=== PATIENT | female | born 1945 | race Caucasian/White ===

== ENCOUNTER 2017-06-22 16:34 | Inpatient (IN) | payer OTHER ==
[2017-06-22] VITALS (17 sets, daily range): BP systolic 85–116; BP diastolic 40–70
[~2017-06-22] VITALS: Ht 162.6 cm; Wt 112.5 kg
--- NOTE | ~2017-06-22 | EKG ---
[facility] [place] [address] ELECTROCARDIOGRAM REPORT Name: MARISADONNAKAMI Room #: REG CONNIE Camargo#: [id number] Admission: 06/22/17 Attend Phys: Discharge: Date of : 41 Report #: [id number] THIS REPORT FOR: //name// [facility] ED Test Date: 2017-06-22 Test Time: 16:54:06 Pat Name: KAMI OCHOA Department: Room: Gender: F Instrument Operator: MIGUEL : 1945 Requested By: Marjorie Baltazar Order Number: [id number] MD: Michele Belle Measurements Intervals [place] Rate: 85 P: -37 MI: 221 QRS: -25 QRSD: 84 T: 136 QT: 394 QTc: 469 Interpretive Statements Sinus rhythm Prolonged MI interval Inferior infarct, old Anterolateral infarct, age indeterminate T-wave abnormality, consider lateral ischemia No previous ECG available for comparison Electronically Signed On 06-22-2017 17:33:21 LACTATION SPECIALIST by Michele Belle [email or web address] <ELECTRONICALLY SIGNED> By: Michele Belle MD, [facility] 06/22/17 1733 1654 1654 Michele Belle MD, FACC /EPI
--- NOTE | ~2017-06-22 | S ---
[facility] [place] [address] SURGICAL PATH RPT PROCEDURE Name: KERRI OCHOAA Room #: 355-P ADM IN M.R.#: [id number] Admission: 06/22/17 Date of : 41 Discharge: Report #: [id number] Path Case #: [id number] PATHOLOGY REPORT COLLECTION DATE: 06/27/2017 RECEIVED DATE: 06/27/2017 SUBMITTING PHYS: Dr. Wyatt Monroy OTHER PHYS: Dr. Charmaine Garcia SPECIMEN(S) RECEIVED: A.Cecal polyp B.Sigmoid polyp x2 * * * * * * * * * * * * FINAL DIAGNOSIS: A. "Cecal polyp", biopsy: - Tubular adenoma; no high grade dysplasia. B. "Sigmoid polyp x 2", biopsy: - Tubular adenoma; no high grade dysplasia. (CLW:db; 06/28/2017) PATHOLOGIST: Nicole Melendez M.D. REPORT ELECTRONICALLY SIGNED BY: Nicole Melendez M.D. DATE/TIME: 06/28/2017 15:49 * * * * * * * * * * * * GROSS PATHOLOGY: A. Received in formalin labeled "Kami Ochoa, polyp at cecum," is a 1.1 x 0.4 x 0.4 cm polypoid piece of maciel soft tissue. The margin is inked and the tissue is sectioned perpendicular to the margin and submitted in its entirety in cassette A1. B. Received in formalin labeled "Kami Ochoa, polyp at sigmoid colon," is a 0.8 x 0.5 x 0.7 cm polypoid piece of maciel soft tissue. The margin is inked and the tissue is sectioned perpendicular to the margin and submitted in its entirety in cassette B1. Additionally received in the same container is a 0.7 x 0.6 x 0.6 cm polypoid piece of maciel soft tissue. The margin is inked and the tissue sectioned perpendicular to the margin and submitted entirely in cassette B1. (TSD; 06/27/2017) CLINICAL HISTORY: Pre-OP DX: Melena, anemia Post-OP DX: Colon polyps, diverticulosis, internal hemorrhoids [address] [place] [address] SURGICAL PATH RPT PROCEDURE Name: KAMI OCHOA Room #: 355-P ADM IN M.R.#: [id number] Admission: 06/22/17 Date of : 41 Discharge: Report #: [id number] Path Case #: [id number] INITIAL CPT CODE(S): A; 81101 B; 99828 Professional services performed by [facility] at [facility] [address] [place] [address] Technical services performed by [facility] at [address] [place] [address], [facility] [address], [place] [address]. [facility] [address] [address] PHONE: [phone] DIRECTOR: Anant Osorio M.D. * * * END OF REPORT * * *
--- NOTE | ~2017-06-22 | HC ---
[facility] [place] [address] CONSULTATION Name: KAMI OCHOA Room #: 238-P ADM IN M.R.#: [id number] Admission: 06/22/17 Attend Phys: Charmaine Munoz Discharge: Date of : 41 Report #: [id number] THIS REPORT FOR: //name// CC: Charmaine Garcia DATE OF SERVICE: 06/22/[address] Vanessa Garcia and Dr. Charmaine Munoz. CHIEF COMPLAINT: This is a very pleasant 72-year-old white female whom I am asked to evaluate for possible etiologies of melena. The patient has had flu-like symptoms beginning last Tuesday, about 5 days ago. The flu symptoms included headache, dizziness, shortness of breath, dyspnea on exertion and initially, she had nausea and vomiting as well. She did not vomit any type of bloody material. She started passing black colored stools and became very weak, particularly today. She has been unable to eat anything for the last 5 or 6 days, she has had a lot of malaise and has probably become quite dehydrated because she has not even been drinking any water or any type of liquid. PAST MEDICAL HISTORY: Significant only for hyperlipidemia. She has been quite healthy all of her life. PAST SURGICAL HISTORY: Significant for bilateral tubal ligation in 1971 and she had ovarian cyst removed in 1963. ALLERGIES: No known drug allergies. MEDICATIONS: Prior to admission include only atorvastatin and aspirin. SOCIAL HISTORY: She does not smoke. She drinks a rare occasional beer, but nothing on a daily basis or excessively. She has never had a blood transfusion. FAMILY HISTORY: Negative for colon polyps, colon cancer, Crohn's disease and ulcerative colitis. REVIEW OF SYSTEMS: She denies any dysphagia or odynophagia. She does have worsening gastroesophageal reflux symptoms during all of this. She has no history of a hiatal hernia or peptic ulcer disease. Her weight has been stable. Her appetite was very good prior to this influenza, and she has had no appetite for the last 5 days and has eaten hardly anything. She has not even been drinking fluids. She has had some nausea and vomiting and had some emesis that [facility] [address] [place] [address] CONSULTATION Name: KAMI OCHOA Room #: 238-P [facility] IN .R.#: [id number] Admission: 06/22/17 Attend Phys: Charmaine Munoz Discharge: Date of : 41 Report #: [id number] was nonbloody Tuesday night. Then, she developed some black stools starting Tuesday and her hemoglobin at the time when she came to the ER was 8.8 prior to volume resuscitation. She was lightheaded. She did not have any syncopal episodes. She denied any abdominal pain. She has had no constipation. She said her last colonoscopy was within the last 10 years and it was normal. She has no history of jaundice, hepatitis, cholelithiasis, cholecystitis or pancreatitis. PHYSICAL EXAMINATION: GENERAL: Reveals a well-developed, well-nourished 72-year-old white female who is in mild distress because of her malaise. She is awake, alert, oriented x 4 and cooperative and pleasant to converse with. HEENT: She is normocephalic, atraumatic and anicteric. HEART: Rate and rhythm are regular with a normal S1 and S2. VITAL SIGNS: Blood pressure is stable after 3 liters of normal saline in the ER. LUNGS: Clear to auscultation bilaterally. ABDOMEN: Soft, nontender. Bowel sounds are present in all 4 quadrants. There is no palpable organomegaly or mass. There is no tenderness, rebound or guarding. EXTREMITIES: Warm and dry. No peripheral cyanosis, clubbing or edema. NEUROLOGIC: She appears grossly intact without lateralizing signs. SIGNIFICANT LABORATORY DATA: Sodium 133, potassium 3.4, chloride 98, CO2 of 25, BUN 44, creatinine is 1.1, glucose 311, so she may be diabetic. Her liver enzymes are all within normal limits. Albumin is 2.2 consistent with her poor intake over the last week. She had a lactic acid level of 4.4. Troponin was 0.17. White blood cell count 14.5, hemoglobin 8.8, hematocrit 26.3, platelets are 249,000. Urinalysis just showed a trace of glucose and is otherwise normal. Chest x-ray showed mild cardiac enlargement, but no evidence of CHF or acute pulmonary process. CT scan of the abdomen and pelvis was done and showed the stomach to be markedly distended with fluid and some gas. There was mild circumferential mural thickening of the stomach distally. The descending duodenal segment was also thickened and there was mild mesenteric fat stranding along the side of this thick walled descending duodenum. These findings were consistent with duodenitis and distal gastritis. There was no small-bowel obstruction. Liver, spleen, pancreas, adrenals, and kidneys were unremarkable except for a 1.5 cm low density left adrenal nodule, most suggestive of an incidental adrenal cortical adenoma per the radiology report, there is some sigmoid diverticulosis, but no diverticulitis. She has uterine fibroid. There is extensive coronary artery calcification. IMPRESSION: [facility] [address] [place] [address] CONSULTATION Name: KAMI OCHOA Room #: 238-P [facility] IN [facility].#: [id number] Admission: 06/22/17 Attend Phys: Charmaine Moses Tammy Discharge: Date of : 41 Report #: [id number] 1. Recent influenza with malaise, headache, dizziness, cough, shortness of air, followed by nausea, vomiting, and melena. She has been taking some ibuprofen. It may be that she has developed some gastritis or an ulcer. CT suggests thickening of the distal stomach and descending duodenal bullock with a possible gastric outlet obstruction, suspected duodenitis and distal gastritis were noted. The patient has noted some increased gastroesophageal reflux symptoms recently, hemoglobin was 8.8. She is very dehydrated on admission and received 2 liters of fluid, so her hemoglobin will probably drop because of dilution. She does not appear to have had any further stools since earlier this afternoon, probably about at least 6 hours ago. We will monitor her H and H closely. She is typed and screened in case we need to transfuse her. We will continue proton pump inhibitor drip and monitor H and H q. 6 hours, give her some ice chips and clear liquids until midnight tonight. We will plan on doing an EGD in the morning. 2. Past medical history significant for good health and only hyperlipidemia for which she takes atorvastatin. 3. The patient had a normal colonoscopy in the past 10 years. 4. Adrenal adenoma seen on CT scan on the left adrenal. 5. Extensive coronary artery calcification. I note that her troponin level is elevated somewhat and I wonder if perhaps with her shortness of air, she might need to have a cardiac evaluation at some point. 6. Normocytic normochromic anemia with hemoglobin of 8.8. 7. Elevated white count 14.5. 8. Lactic acid level is 4.4. RECOMMENDATIONS: Continue hydrating her and will plan on an EGD in the morning. I have discussed this with the patient and the family and they are in agreement. Thank you very much once again for allowing me to participate in her care, Dr. Munoz and Dr. Garcia. <ELECTRONICALLY SIGNED> By: Queenie Cleary DO 06/23/17 0657 2055 0323 Queenie Cleary DO /nt
--- NOTE | ~2017-06-22 | P ---
[facility] [place] [address] PROCEDURE REPORT Name: KAMI OCHOA Room #: 355-P [facility] IN M.R.#: [id number] Admission: 06/22/17 Attend Phys: Charmaine Munoz Discharge: 06/29/17 Date of : 41 Report #: [id number] THIS REPORT FOR: //name// CC: Inpatient Chart Charmaine Garcia MD DATE OF SERVICE: 06/23/2017 PATIENT OF: Dr. Teo Santacruz and Dr. Vanessa Garcia. INDICATION FOR PROCEDURE: Melena and severe anemia. DESCRIPTION OF PROCEDURE: Informed consent for this procedure was obtained prior to the administration of any medication. The risks of the procedure which include bleeding, perforation, infection, complications of sedation and the possibility I could miss something have been explained to the patient and she has indicated her consent by signing. Propofol was slowly titrated before and during this procedure for patient comfort by the Anesthesia Service. The [employer] upper videoscope was introduced through the upper esophageal sphincter and advanced under direct visualization to the descending duodenum. Findings were noted on withdrawal of the scope. The third portion of the duodenum appeared normal. In the second portion, there is severe nonbleeding circumferential ulcerations for several centimeters. To meet these appeared to be ischemic ulcers. Biopsies were taken x 2 from the ischemic appearing ulcerated area. Distal to the ulcerations, the mucosa becomes abruptly normal. The duodenal bulb itself is normal in appearance. Pylorus, normal mucosa. Antrum, there are small erosions and ulcers in the antrum, nonbleeding. Biopsies were taken x 2 from these ulcerated areas for histopathology. Body, normal mucosa. Cardia and fundus, normal mucosa. Retroflex view did not reveal any significant hiatal hernia. Scope was withdrawn to the esophagus. There is a severely ulcerated esophagus from 30-40 cm. Etiology is uncertain. These will need to be revisualized in approximately 3 months to be certain that they have healed and to be certain that there is no John's ectopic mucosa or esophageal cancer present. The scope was withdrawn. The patient went to the recovery area in stable condition. She tolerated the procedure well. IMPRESSION: 1. Severely ulcerated distal esophagus from 30-40 cm, etiology uncertain, rule out John's, rule out malignancy. 2. Minor ulcerations in the distal stomach. Biopsies pending. 3. Severely ulcerated nonbleeding circumferential area in the second portion of [address] [address] PROCEDURE REPORT Name: KAMI OCHOA Room #: 355-P [facility] IN M.R.#: [id number] Admission: 06/22/17 Attend Phys: Charmaine Munoz Discharge: 06/29/17 Date of : 41 Report #: [id number] the duodenum that appears ischemic. Biopsies taken and are pending. RECOMMENDATIONS: To await the biopsy results. We will start her on a clear liquid diet. We will continue the proton pump inhibitors. She ought to have a CT angiogram of the mesenteric arteries and may need an interventional radiology consultation. We will monitor H and H closely and transfuse as necessary. Consider Cardiology consult for evaluation of the calcified coronary artery seen on CT scan. She will need a followup EGD for evaluation of the ulcerated esophagus in approximately 12 weeks. Thank you very much once again for allowing me to participate in her care. <ELECTRONICALLY SIGNED> By: Queenie Cleary DO 07/13/17 2214 0917 1033 Queenie Cleary DO /nt
--- NOTE | ~2017-06-22 | S ---
[facility] [place] [address] SURGICAL PATH RPT PROCEDURE Name: KAMI CONNOLLY Room #: 355-P ADM IN M.R.#: [id number] Admission: 06/22/17 Date of : 41 Discharge: Report #: [id number] Path Case #: [id number] PATHOLOGY REPORT COLLECTION DATE: 06/23/2017 RECEIVED DATE: 06/23/2017 SUBMITTING PHYS: Dr. Queenie Cleary OTHER PHYS: Dr. Julio Munoz ADDENDUM REPORT (Order Date: 06/27/2017 09:57) ADDENDUM COMMENT: This addendum is issued subsequent to reviewing a well-controlled Helicobacter pylori immunohistochemical stain performed on block C1. It is negative for Helicobacter pylori organisms. The originally rendered diagnosis remains unchanged. (IUV:watson; 06/27/2017) Professional services performed under supervision of [facility] at [address] [place] [address]. Technical services performed by [facility] under supervision of a [facility] at [address] [place] [address], [address] [address]. ELECTRONICALLY SIGNED BY: Molly Larkin M.D. DATE/TIME:06/27/2017 15:04 SPECIMEN(S) RECEIVED: A.Bx of duodenum B.Bx of ulcerative mucosa 2nd portion of duodenum R/O Ischemia C.Bx of ulcerative mucosa distal stomach R/O Ischemia * * * * * * * * * * * * FINAL DIAGNOSIS: A. Small bowel mucosa, duodenum, endoscopic biopsy: - Mild active duodenitis with surface epithelium showing fundic-type metaplasia (please see comment). - Negative for dysplasia or malignancy. B. Small bowel mucosa, ulcerative mucosa second portion of duodenum, endoscopic biopsy: - Marked lamina propria fibrosis along with focal fundic-type metaplasia of the surface epithelium as well as active duodenitis (please see comment). - Negative for dysplasia or malignancy. C. Gastric fundic-type mucosa, ulcerative mucosa distal stomach rule out ischemia, endoscopic biopsy: - One fragment consistent with ulceration showing complete loss of [facility] [address] [place] [address] SURGICAL PATH RPT PROCEDURE Name: KAMI CONNOLLY Room #: 355-P [facility] IN M.R.#: [id number] Admission: 06/22/17 Date of : 41 Discharge: Report #: [id number] Path Case #: [id number] surface epithelium. - Background fundic-type mucosa showing changes compatible with mild reactive gastropathy. (Please see comment). - Negative for intestinal metaplasia or atrophy. COMMENT: The presence of fundic-type metaplasia along with the other surface epithelial changes identified within the duodenum as well as the second portion of duodenum biopsy tissues is suggestive of peptic duodenitis. Although lamina propria fibrosis is identified, regenerative surface epithelium, regenerative surface atypia, fibrin filled vessels as well as other findings to suggest ischemia are not present. Ischemic changes, as well as medication induced changes are, however, in the differential diagnosis. The stomach biopsy tissue shows a fragment of fibrinopurulent material along with the other fragments intact with fundic-type mucosa as well as mild chronic inflammation within the lamina propria. Changes to suggest ischemia are not identified. The differential diagnosis includes chemical gastritis including medication induced gastritis. Helicobacter pylori immunohistochemical stain is ordered on block C1 and the results of this will be reported in an addendum to follow. Please correlate clinically and follow-up as indicated. (IUV:db; 06/24/2017) PATHOLOGIST: Molly Larkin M.D. REPORT ELECTRONICALLY SIGNED BY: Molly Larkin M.D. DATE/TIME: 06/24/2017 13:15 * * * * * * * * * * * * GROSS PATHOLOGY: A. Received in formalin labeled "Kami Connolly, BX of duodenum," are 3 segments of maciel soft tissue measuring 1.1 x 0.5 x 0.3 cm in aggregate dimensions and ranging from 0.3 to 0.4 cm in maximum dimension. The specimen is submitted entirely in cassette A1. B. Received in formalin labeled "Kami Connolly, BX of ulcerative mucosa second portion of duodenum," are 2 segments of maciel soft tissue measuring 0.6 x 0.2 x 0.3 cm in aggregate dimensions and measuring 0.3 cm in maximum dimension. The specimen is submitted entirely in cassette B1. C. Received in formalin labeled "Kami Connolly, BX of ulcerative mucosa of distal stomach," are 2 segments of maciel soft tissue measuring 0.7 x 0.2 x 0.2 cm in aggregate dimensions and ranging from 0.3 to 0.4 cm in maximum dimension. The specimen is submitted entirely in cassette C1. (TSD; 06/23/2017) [address] [address] SURGICAL PATH RPT PROCEDURE Name: KAMI CONNOLLY Room #: 355-P ADM IN M.R.#: [id number] Admission: 06/22/17 Date of : 41 Discharge: Report #: [id number] Path Case #: [id number] CLINICAL HISTORY: Pre-OP DX: Anemia Post-OP DX: Duodenal ulcers INITIAL CPT CODE(S): A; 70747 B; 19111 C; 70570, 71778 Professional services performed by [facility] at [place] [address] [address], [place] [address] Technical services performed by [facility] at [address] [place] [address], [facility] [address] [address]. [facility] [address] [place] [address] PHONE: [phone] DIRECTOR: Anant Osorio M.D. * * * END OF REPORT * * *
[2017-06-22 17:16] LABS: ABSOLUTE NEUTROPHILS 12.7 thou/uL (1.4-8.2); BASOPHILS 0.3 % (0.0-2.0); HEMATOCRIT 26.3 % (37.0-47.0); HEMOGLOBIN 8.8 gm/dL (12.0-15.0); LYMPHOCYTES 6.8 % (24.0-44.0); MCH 27.8 pg (26.0-34.0); MCHC 33.5 g/dL (28.0-37.0); MCV 83.1 fL (80.0-100.0); MONOCYTES 5.7 % (1.0-8.0); PLATELET COUNT 249 thou/uL (150-400); POLYS 87.2 % (36.0-66.0); RBC 3.17 mil/uL (4.20-5.00); RDW 14.3 % (10.5-14.5); WBC 14.5 thou/uL (4.0-11.0)
[2017-06-22 17:20] LABS: ANION GAP 10 mmol/L (7-16); BUN 44 mg/dL (7-18); CALCIUM 8.2 mg/dL (8.5-10.1); CHLORIDE 98 mmol/L (98-107); CO2 25 mmol/L (21-32); CREATININE 1.1 mg/dL (0.6-1.0); GLUCOSE 311 mg/dL (74-106); POTASSIUM 3.4 mmol/L (3.5-5.1); SODIUM 133 mmol/L (136-145)
[2017-06-22 17:37] LABS: ALBUMIN 2.2 g/dL (3.4-5.0); DIRECT BILIRUBIN < 0.1 mg/dL (<0.1-0.3); SGOT 21 U/L (15-37); SGPT 29 U/L (30-65); TOTAL BILIRUBIN 0.3 mg/dL (<0.1-1.0); TOTAL PROTEIN 5.2 g/dL (6.4-8.2); TROPONIN-I 0.17 ng/mL (<0.06)
[2017-06-22 19:14] LABS: URINE BILIRUBIN NEGATIVE (Negative); URINE BLOOD NEGATIVE (Negative); URINE CLARITY CLEAR; URINE GLUCOSE-RANDOM* TRACE (Negative); URINE KETONES NEGATIVE (Negative); URINE LEUKOCYTES NEGATIVE (Negative); URINE NITRITE NEGATIVE (Negative); URINE PROTEIN (DIPSTICK) NEGATIVE (Negative); URINE SPECIFIC GRAVITY <= 1.005 (1.005-1.035); URINE UROBILINOGEN 0.2 E.U./dl (0.2-1.0)
[2017-06-22 19:15] LABS: URINE COLOR STRAW
[2017-06-22 21:28] LABS: HEMATOCRIT 22.9 % (37.0-47.0); HEMOGLOBIN 7.7 gm/dL (12.0-15.0)
[2017-06-23] VITALS (12 sets, daily range): BP systolic 85–123; BP diastolic 43–57
[2017-06-23 00:47] LABS: ABSOLUTE NEUTROPHILS 8.4 thou/uL (1.4-8.2); BASOPHILS 0.1 % (0.0-2.0); HEMATOCRIT 21.4 % (37.0-47.0); HEMOGLOBIN 7.1 gm/dL (12.0-15.0); LYMPHOCYTES 17.8 % (24.0-44.0); MCH 27.5 pg (26.0-34.0); MCHC 33.1 g/dL (28.0-37.0); MONOCYTES 8.7 % (1.0-8.0); PLATELET COUNT 211 thou/uL (150-400); POLYS 73.4 % (36.0-66.0); RBC 2.58 mil/uL (4.20-5.00); RDW 14.1 % (10.5-14.5); WBC 11.5 thou/uL (4.0-11.0)
[2017-06-23 05:28] LABS: BE(vivo) -1.9 mmol/L (-2 to +3); HCO3 22.7 mmol/L (22.0-26.0); PCO2 VENOUS 37.5 mmHg (41.0-51.0); PO2 VENOUS 31.8 mmHg (35.0-45.0)
[2017-06-23 05:32] LABS: HEMOGLOBIN 6.5 gm/dL (12.0-15.0)
[2017-06-23 05:33] LABS: HEMATOCRIT 19.6 % (37.0-47.0)
[2017-06-23 05:37] LABS: CALCIUM 7.3 mg/dL (8.5-10.1); CREATININE 0.6 mg/dL (0.6-1.0); MAGNESIUM 1.9 mg/dL (1.8-2.4); POTASSIUM 3.5 mmol/L (3.5-5.1)
[2017-06-23 12:21] LABS: HEMATOCRIT 22.4 % (37.0-47.0); HEMOGLOBIN 7.6 gm/dL (12.0-15.0)
[2017-06-24] VITALS (28 sets, daily range): BP systolic 97–141; BP diastolic 45–87
[2017-06-24 09:49] LABS: HEMATOCRIT 22.2 % (37.0-47.0); HEMOGLOBIN 7.4 gm/dL (12.0-15.0); MCH 28.6 pg (26.0-34.0); MCHC 33.2 g/dL (28.0-37.0); MCV 85.9 fL (80.0-100.0); RBC 2.59 mil/uL (4.20-5.00); RDW 14.6 % (10.5-14.5); WBC 10.8 thou/uL (4.0-11.0)
[2017-06-24 09:57] LABS: CALCIUM 7.8 mg/dL (8.5-10.1); CREATININE 0.5 mg/dL (0.6-1.0); POTASSIUM 3.5 mmol/L (3.5-5.1)
[2017-06-25] VITALS (45 sets, daily range): BP systolic 95–149; BP diastolic 45–108
[2017-06-25 03:38] LABS: MCH 29.6 pg (26.0-34.0); MCHC 34.4 g/dL (28.0-37.0); RBC 2.09 mil/uL (4.20-5.00); RDW 15.3 % (10.5-14.5); WBC 9.4 thou/uL (4.0-11.0)
[2017-06-25 03:45] LABS: HEMOGLOBIN 6.2 gm/dL (12.0-15.0)
[2017-06-25 11:41] LABS: HEMATOCRIT 21.9 % (37.0-47.0); HEMOGLOBIN 7.6 gm/dL (12.0-15.0)
[2017-06-26] VITALS (9 sets, daily range): BP systolic 115–159; BP diastolic 49–82
[2017-06-26 04:40] LABS: HEMATOCRIT 20.9 % (37.0-47.0); HEMOGLOBIN 7.2 gm/dL (12.0-15.0); MCH 29.4 pg (26.0-34.0); MCHC 34.3 g/dL (28.0-37.0); MCV 85.7 fL (80.0-100.0); RBC 2.44 mil/uL (4.20-5.00); RDW 14.9 % (10.5-14.5)
[2017-06-26 04:43] LABS: ALBUMIN 1.9 g/dL (3.4-5.0); CREATININE 0.6 mg/dL (0.6-1.0); POTASSIUM 3.2 mmol/L (3.5-5.1)
[2017-06-27 00:09] VITALS: BP 152/71
[2017-06-27 03:48] VITALS: BP 159/82
[2017-06-27 04:06] LABS: GLYCOHEMOGLOBIN (HGB A1C) 5.7 % (4.8-5.6)
[2017-06-27 08:22] VITALS: BP 156/70
[2017-06-27 10:07] LABS: HEMATOCRIT 24.2 % (37.0-47.0); HEMOGLOBIN 8.1 gm/dL (12.0-15.0); MCH 28.9 pg (26.0-34.0); MCHC 33.6 g/dL (28.0-37.0); RBC 2.81 mil/uL (4.20-5.00); RDW 15.1 % (10.5-14.5); WBC 10.3 thou/uL (4.0-11.0)
[2017-06-27 10:24] LABS: ALBUMIN 2.2 g/dL (3.4-5.0); CALCIUM 8.3 mg/dL (8.5-10.1); CREATININE 0.6 mg/dL (0.6-1.0); MAGNESIUM 1.9 mg/dL (1.8-2.4); POTASSIUM 3.3 mmol/L (3.5-5.1); TOTAL BILIRUBIN 0.4 mg/dL (<0.1-1.0); TOTAL PROTEIN 5.4 g/dL (6.4-8.2)
[2017-06-27 16:00] VITALS: BP 147/72
[2017-06-27 20:45] VITALS: BP 139/68
[2017-06-28 04:55] VITALS: BP 130/67
[2017-06-28 09:04] VITALS: BP 152/62
[2017-06-28 12:47] LABS: HEMATOCRIT 22.9 % (37.0-47.0); HEMOGLOBIN 7.7 gm/dL (12.0-15.0); MCH 29.1 pg (26.0-34.0); MCHC 33.8 g/dL (28.0-37.0); RBC 2.66 mil/uL (4.20-5.00); RDW 15.2 % (10.5-14.5); WBC 9.2 thou/uL (4.0-11.0)
[2017-06-28 17:26] VITALS: BP 145/73
[2017-06-28 20:40] VITALS: BP 125/63
[2017-06-29 05:00] VITALS: BP 125/94
[2017-06-29 06:42] LABS: HEMATOCRIT 24.2 % (37.0-47.0); HEMOGLOBIN 8.1 gm/dL (12.0-15.0); MCH 28.9 pg (26.0-34.0); MCHC 33.5 g/dL (28.0-37.0); MCV 86.2 fL (80.0-100.0); RBC 2.81 mil/uL (4.20-5.00); RDW 15.5 % (10.5-14.5); WBC 8.3 thou/uL (4.0-11.0)
[2017-06-29 07:14] VITALS: BP 133/59
[2017-06-29 15:19] VITALS: BP 115/52
[2017-06-29] MEDS ORDERED: CARAFATE 11 GM/10 M1 PO (16:26)
[2017-06-29] MEDS ORDERED: PROTONIX40 M1 PO (16:26)
[2017-06-29 17:31] VITALS: BP 115/52
== END 2017-06-29 18:36 | disposition home or self-care (01) | DRG 871 ==
LOC: ER 16:34 → ICU 17:42 → EROBS 17:42 → 3W 18:05 → ICU 18:11 → 3W 06-26 13:58
PROVIDERS: Emergency Medicine; Hospitalist; Internal Medicine; Internal Medicine Gastroenterology; Nurse Practitioner; Nurse Practitioner Acute Care; Specialist
PROC: 30233N1 Transfusion of Nonautologous Red Blood Cells into Peripheral Vein, Percutaneous Approach (ICD-10-PCS; principal; 2017-06-25)
PROC: 0DBH8ZX Excision of Cecum, Via Natural or Artificial Opening Endoscopic, Diagnostic (ICD-10-PCS; 2017-06-27)
PROC: 0DBN8ZX Excision of Sigmoid Colon, Via Natural or Artificial Opening Endoscopic, Diagnostic (ICD-10-PCS; 2017-06-27)
PROC: 0DB68ZX Excision of Stomach, Via Natural or Artificial Opening Endoscopic, Diagnostic (ICD-10-PCS; 2017-06-27)
PROC: 0DB98ZX Excision of Duodenum, Via Natural or Artificial Opening Endoscopic, Diagnostic (ICD-10-PCS; 2017-06-27)
DX: A41.9 Sepsis, unspecified organism (principal); R65.21 Severe sepsis with septic shock; K29.71 Gastritis, unspecified, with bleeding; E43 Unspecified severe protein-calorie malnutrition; K26.4 Chronic or unspecified duodenal ulcer with hemorrhage; Z68.41 Body mass index [BMI] 40.0-44.9, adult; D62 Acute posthemorrhagic anemia; K92.1 Melena; E78.5 Hyperlipidemia, unspecified; D35.02 Benign neoplasm of left adrenal gland; E66.9 Obesity, unspecified; E11.9 Type 2 diabetes mellitus without complications; K63.5 Polyp of colon; K57.90 Diverticulosis of intestine, part unspecified, without perforation or abscess without bleeding; K64.8 Other hemorrhoids
CPT/HCPCS: 10203; 10879; 62110; 70005

== ENCOUNTER 2018-12-25 12:57 | Emergency (ER) | payer OTHER ==
[~2018-12-25] VITALS: Ht 162.6 cm; Wt 98.9 kg
[~2018-12-25 12:57] MED LIST: CARAFATE 11 GM/10 M1 PO; PROTONIX40 M1 PO
[2018-12-25] MEDS ORDERED: LIPITOR 20 MG T20 M1 PO (13:25)
[2018-12-25] MEDS ORDERED: SPIRONOLACTONE100 M1 PO (13:26)
[2018-12-25] MEDS ORDERED: LOPRESSOR25 PO (13:26)
[2018-12-25] MEDS ORDERED: TUMERIC PO (13:27)
[2018-12-25] MEDS ORDERED: VITAMIN D3400 UNIT PO (13:27)
[2018-12-25 13:32] LABS: ABSOLUTE NEUTROPHILS 9.3 thou/uL (1.4-8.2); BASOPHILS 0.8 % (0.0-2.0); EOSINOPHILS 0.2 % (0.0-3.0); HEMATOCRIT 38.5 % (37.0-47.0); MCH 28.7 pg (26.0-34.0); MCHC 33.6 g/dL (28.0-37.0); MCV 85.4 fL (80.0-100.0); MONOCYTES 6.5 % (1.0-8.0); PLATELET COUNT 319 thou/uL (150-400); POLYS 68.5 % (36.0-66.0); RBC 4.52 mil/uL (4.20-5.00); RDW 14.4 % (10.5-14.5); WBC 13.6 thou/uL (4.0-11.0)
[2018-12-25 13:44] LABS: CALCIUM 9.1 mg/dL (8.5-10.1); POTASSIUM 4.6 mmol/L (3.5-5.1)
[2018-12-25 13:46] LABS: APTT 24.4 Seconds (24.5-32.8); PROTIME 10.1 Seconds (9.3-11.4)
[2018-12-25 13:50] LABS: ALBUMIN 3.6 g/dL (3.4-5.0); DIRECT BILIRUBIN 0.1 mg/dL (<0.1-0.3); TOTAL BILIRUBIN 0.4 mg/dL (<0.1-1.0); TOTAL PROTEIN 6.8 g/dL (6.4-8.2)
[2018-12-25 15:13] VITALS: BP 131/70
--- NOTE | 2018-12-26 08:17 | EKG ---
[facility] [employer] [place] [address] ELECTROCARDIOGRAM REPORT Name: GABRIELAKAMI Room #: DEP Mary Jo#: [id number] Admission: 12/25/18 Attend Phys: Discharge: 12/25/18 Date of : 41 Report #: [id number] THIS REPORT FOR: //name// [facility] ED Test Date: 2018-12-25 Test Time: 13:29:43 Pat Name: KAMI OCHOA Department: Room: Gender: F Studio Operation Engineer: Harmeet IZQUIERDO : 1945 Requested By: Maria T Araujo Order Number: [id number] MD: Michele Belle Measurements Intervals [place] Rate: 82 P: -38 VA: 251 QRS: -30 QRSD: 74 T: 86 QT: 362 QTc: 423 Interpretive Statements Sinus rhythm Prolonged [place] interval Inferior infarct, old Anterior infarct, old Compared to ECG 06/22/2017 16:54:06 No significant change was found Electronically Signed On 12-26-2018 8:17:13 CDT by Michele Belle [email or web address] <ELECTRONICALLY SIGNED> By: Michele Belle MD, [facility] 12/26/18 0817 1329 132 Michele Belle MD, [facility] /EPI
== END 2018-12-25 15:31 | disposition home or self-care (01) ==
LOC: ER 12:57
PROVIDERS: Emergency Medicine
DX: K92.2 Gastrointestinal hemorrhage, unspecified (principal); R55 Syncope and collapse; E78.5 Hyperlipidemia, unspecified; K21.9 Gastro-esophageal reflux disease without esophagitis; Z98.51 Tubal ligation status

== ENCOUNTER 2018-12-25 22:25 | Inpatient (IN) | payer OTHER ==
[~2018-12-25] VITALS: Ht 162.6 cm; Wt 104.3 kg
[~2018-12-25 22:25] MED LIST changes: +LIPITOR 20 MG T20 M1 PO; +LOPRESSOR25 PO; +SPIRONOLACTONE100 M1 PO; +TUMERIC PO; +VITAMIN D3400 UNIT PO
[2018-12-25 22:26] VITALS: BP 103/60
[2018-12-25 23:20] LABS: ABSOLUTE NEUTROPHILS 7.9 thou/uL (1.4-8.2); BASOPHILS 0.3 % (0.0-2.0); EOSINOPHILS 0.1 % (0.0-3.0); HEMOGLOBIN 11.4 gm/dL (12.0-15.0); MCH 28.7 pg (26.0-34.0); MCHC 33.5 g/dL (28.0-37.0); MCV 85.8 fL (80.0-100.0); MONOCYTES 5.1 % (1.0-8.0); PLATELET COUNT 272 thou/uL (150-400); POLYS 78.5 % (36.0-66.0); RBC 3.96 mil/uL (4.20-5.00); RDW 14.6 % (10.5-14.5); WBC 10.1 thou/uL (4.0-11.0)
[2018-12-25 23:25] LABS: ANION GAP 11 mmol/L (7-16); BUN 60 mg/dL (7-18); CALCIUM 9.1 mg/dL (8.5-10.1); CHLORIDE 102 mmol/L (98-107); CO2 24 mmol/L (21-32); GLUCOSE 206 mg/dL (74-106); POTASSIUM 4.3 mmol/L (3.5-5.1); SODIUM 137 mmol/L (136-145)
[2018-12-25 23:30] LABS: APTT 22.1 Seconds (24.5-32.8); PROTIME 10.6 Seconds (9.3-11.4)
[2018-12-25 23:33] LABS: TROPONIN-I <0.06 ng/mL (<0.06)
[2018-12-26 06:23] LABS: HEMATOCRIT 27.8 % (37.0-47.0)
[2018-12-26 06:40] LABS: HEMOGLOBIN 9.4 gm/dL (12.0-15.0)
--- NOTE | 2018-12-26 08:33 | EKG ---
[address] [place] [address] ELECTROCARDIOGRAM REPORT Name: MARISADONNAKAMI Room #: 170-5 ADM IN M.R.#: [id number] Admission: 12/26/18 Attend Phys: Neil Bolden MD Discharge: Date of : 41 Report #: [id number] THIS REPORT FOR: //name// [facility] ED Test Date: 2018-12-25 Test Time: 23:20:05 Pat Name: KAMI OCHOA Department: Room: 170 Gender: F Payroll Clerk: VENKAT : 1945 Requested By: Wilfredo Salmon Order Number: [id number] MD: Michele Belle Measurements Intervals [place] Rate: 69 P: -23 NJ: 253 QRS: -26 QRSD: 71 T: 81 QT: 389 QTc: 417 Interpretive Statements Sinus rhythm Prolonged [place] interval Inferior infarct, old Anterior infarct, old Compared to ECG 06/22/2017 16:54:06 No significant change was found Electronically Signed On 12-26-2018 8:33:08 CDT by Michele Belle [email or web address] <ELECTRONICALLY SIGNED> By: Michele Belle MD, [facility] 12/26/18 0833 2320 2320 Michele Belle MD, [facility] /EPI
[2018-12-26 09:44] VITALS: BP 127/66
[2018-12-26 09:59] VITALS: BP 127/66
[2018-12-26 10:38] VITALS: BP 107/54
[2018-12-26 11:00] VITALS: BP 118/46
[2018-12-26 14:09] LABS: HEMATOCRIT 27.5 % (37.0-47.0)
--- NOTE | 2018-12-26 18:29 | NUR ---
PT HAS HAD NO BLEEDING SINCE RETURNING FROM EGD. PER DR CARTER PT ALLOWED TO HAVE CLEAR LIQUIDS. PT HAS HAD ICE WATER AND BROTH WITH NO PROBLEMS. PT STILL HAS PROTONIX AND NS RUNNING. DAUGHTERS HAVE ASSISTED PT TO BATHROOM SEVERAL TIMES. PT STEADY ON FEET, NO LONGER FEELING WEAK. INFORMED TO CALL IF BLEEDING SHOULD START AGAIN OR PT IS SYMPTOMATIC
[2018-12-26 19:19] VITALS: BP 130/54
[2018-12-26 23:01] LABS: HEMATOCRIT 24.3 % (37.0-47.0)
[2018-12-27] VITALS (52 sets, daily range): BP systolic 73–137; BP diastolic 23–60
[2018-12-27 04:59] LABS: HEMATOCRIT 17.9 % (37.0-47.0)
--- NOTE | 2018-12-27 05:46 | NUR ---
ASSUMED CARE OF PT FROM [facility] AROUND 2300. VSS AT TIME. THROUGHOUT NIGHT PT FELT SLIGHTLY DIZZY WHEN STANDING. NAUSEA CONTROLLED WITH ZOLFRAN PER EMAR. LATE IN NIGHT PT STARTED HAVING MULTIPLY LOOSE/GELLY DARK TAR AND BLOOD TINGED STOOL. BP DROP. HR ELEVATED. PT INCREASED DIZZINESS. LEAD SOFTWARE ENGINEER NOTIFIED. THESING CALLED, ORDERS RECIEVED. PT TRANSFERED TO ICU. DAUGHTER ODETTE NOTIFIED.
--- NOTE | 2018-12-27 07:41 | NUR ---
PATIENT TRANSFERRED FROM CCU DUE TO GI BLEED. PATIENT BECAME UNRESPONSIVE AND BRADYCARDIA IN 20'S ON TOP TAPER MACHINE. RAPID CODE CALLED. NURSE PRACTITIONER AT THE BEDSIDE, 2 UNITS OF BLOOD GIVEN, IR CONSULTED FOR INTERVENTION AND DR. LOCKWOOD NOTIFIED. PATIENT MORE RESPONSIVE AFTER BLOOD STARTED. TRANSFERRED TO IR FOR PROCEDURE. NO SIGN OF ACUTE DISTRESS NOTED. FAMILY UPDATED ON THE PLAN OF CARE. WILL CONTINUE TO MONITOR.
--- NOTE | 2018-12-27 10:29 | NUR ---
Nutrition: Pt admit with GIB, acute blood loss anemia. S/P IR coiling of duodenal ulcer. Transferred from CCU following episode of unresponsiveness. RD consult received due to physician diagnosed severe malnutrition. Pt tolerated clear liquids at this time and reports normal intake prior to admit. 20# weight loss last year at time of pneumonia and hospitalization. Weight remains with BMI 38, obesity class II. BG 110-131. Hx of diet controlled DM. Reports watches carbs, avoids sugar and salt at home. No recent A1C. Follow for timely diet advance. Place as low nutrition risk.
[2018-12-27 11:17] LABS: HEMATOCRIT 25.9 % (37.0-47.0)
[2018-12-27 11:18] LABS: HEMOGLOBIN 8.6 gm/dL (12.0-15.0)
--- NOTE | 2018-12-27 15:07 | PATH ---
[facility] [address] [address] PATHOLOGY RPT PROCEDURE Name: KAMI OCHOA Room #: 243-P ADM IN M.R.#: [id number] Admission: 12/26/18 Date of : 41 Discharge: Report #: [id number] Path Case #: [id number] [facility] Accession Number: [id number] . 01 Material submitted: . stomach - RANDOM GASTRIC BX R/O H PYLORI . 01 Clinical history: . Pre-OP DX: Melena Post-OP DX: Duodenal ulcer-bleeding . 02 Diagnosis: Stomach, random biopsy: - Mild chronic inflammation. - No evidence of Helicobacter pylori on immunoperoxidase stain. (NICKO:marco antonio; 12/27/2018) MBR/12/27/2018 . 02 Electronically signed: . Bry Mansfield MD, Pathologist NPI- [id number] . 01 Gross description: . Received in formalin labeled "Kami Ochoa, random gastric BX, rule out H. pylori," are 5 segments of maciel soft tissue measuring 1.2 x 0.5 x 0.3 cm in aggregate dimensions and ranging from 0.1 to 0.5 cm in maximum dimension. The specimen is submitted entirely in cassette A1. (TSD; 12/26/2018) TOB/TOB . 02 Pathologist provided ICD-10: K29.50 . 02 CPT . 010321, [id number] Specimen Comment: A courtesy copy of this report has been sent to Specimen Comment: [phone], . Specimen Comment: Report sent to / DR MURGUIA Specimen Comment: A duplicate report has been generated due to demographic updates. Performed at: [address] [id number] MD Trevor Ch MD Phone: [phone] Performed at: [address] [id number] [address] [address] PATHOLOGY RPT PROCEDURE Name: KAMI OCHOA Room #: 243-P ADM IN M.R.#: [id number] Admission: 12/26/18 Date of : 41 Discharge: Report #: [id number] Path Case #: [id number] MD Molly Larkin MD Phone: [phone]
[2018-12-27 16:32] LABS: HEMATOCRIT 23.6 % (37.0-47.0); HEMOGLOBIN 7.9 gm/dL (12.0-15.0)
--- NOTE | 2018-12-27 16:57 | NUR ---
ASSUMED CARE @ 0700 12/27/18, PT ASSESSMENTS AND VSS COMPLETE PER ICU PROTOCOL, PT ALERT AND ORIENTED X4, PT ABLE TO FOLLOW COMMANDS. PT SR WITH PVC'S, BP SOFT, NS RUNNING AT 125ML/HR, H&H Q4H, LAST HGB 7.9, WILL CONT TO MONITOR, VERBAL ORDERS FROM DR GOLD TO TRANFUSE WHEN HGB IS LESS THAN 7. PT ON RA, SAT IN THE HIGH 90'S, NO SIGNS OF SOA. PT ON A CLEAR LIQUID DIET, PT HAS HAD 3 EPISODES OF SMEAR-SMALL BLACK STOOLS. KEY IN PLACE, GOP NOTED. PLAN OF CARE- CONT TO MONITOR.
[2018-12-27 20:14] LABS: HEMATOCRIT 22.8 % (37.0-47.0); HEMOGLOBIN 7.6 gm/dL (12.0-15.0)
[2018-12-28] VITALS (19 sets, daily range): BP systolic 95–130; BP diastolic 35–72
[2018-12-28 00:18] LABS: HEMOGLOBIN 6.9 gm/dL (12.0-15.0)
[2018-12-28 00:19] LABS: HEMATOCRIT 20.2 % (37.0-47.0)
[2018-12-28 05:01] LABS: HEMATOCRIT 23.7 % (37.0-47.0); HEMOGLOBIN 8.2 gm/dL (12.0-15.0)
--- NOTE | 2018-12-28 06:12 | NUR ---
END OF SHIFT NOTE ASSUMED CARE FOR PATIENT AT APPROX 1900 ON 12/27/18. PATIENT ASSESSED AND VITAL SIGNS COMPLETED PER ICU PROTOCOL. VSS THROUGHOUT THE NIGHT, SBP LOW IN THE 100'S. H&H CHECKED Q4H. HGB DROPPED TO 6.9, PER DR. GOLD TRANSFUSE <7.0. 1 UNIT PRBC TRANSFUSED. HBG NOW 8.2. PT STATES FEELING PHYSICALLY BETTER. NO BLOODY STOOL OR EMESIS. AFEBRILE. NO COMPLAINTS OF PAIN.
--- NOTE | 2018-12-28 08:14 | P ---
[facility] [place] [address] PROCEDURE REPORT Name: KAMI OCHOA Room #: 243-P [facility] IN M.R.#: [id number] Admission: 12/26/18 Attend Phys: Lili Horne MD Discharge: Date of : 41 Report #: [id number] THIS REPORT FOR: //name// CC: Wyatt Field DATE OF SERVICE: 12/26/2018 INPATIENT UPPER ENDOSCOPY REPORT BRIEF HISTORY: The patient is a 73-year-old woman who was admitted with recurrent GI bleeding. She has a history of duodenal ulcers in the past and previous GI bleeding. PREOPERATIVE DIAGNOSES: 1. Recurrent gastrointestinal bleeding. 2. History of duodenal ulcer disease. POSTOPERATIVE DIAGNOSES: Duodenal ulcer with evidence of recent bleeding. MEDICATIONS: Deep sedation with propofol per Anesthesia. SPECIMEN: Biopsies of gastric mucosa. ESTIMATED BLOOD LOSS: 3 mL related to biopsies. PROCEDURE: EGD with hemostasis and biopsy. FINDINGS: Prior to propofol sedation, procedure of upper endoscopy discussed with the patient, all potential risks and its complications. She indicates she understands and desires to proceed. DESCRIPTION OF PROCEDURE: With the patient in left lateral decubitus position, the Olympus video endoscope was inserted in the cervical esophagus under direct vision without difficulty. Examination of this organ through its entire length revealed normal esophageal mucosa down the squamocolumnar junction. The squamocolumnar junction was inspected and noted to be unremarkable. There was no blood seen in the esophagus. The scope was advanced in the stomach, was examined on end view as well as retroflexed views. She had normal appearing gastric mucosa. No ulcers were seen. No blood was seen. Vascular ectasias were not seen. Upon retroflexion, no mass or lesions were seen. The scope was advanced across the pylorus and was coated with bright red blood. We washed the duodenal bulb as well as possible. Blood was removed. No mucosal lesions were [facility] [address] [place] [address] PROCEDURE REPORT Name: KAMI OCHOA Room #: [address] [place] [address] [place] .R.#: [id number] Admission: 12/26/18 Attend Phys: iLli Horne MD Discharge: Date of : 41 Report #: [id number] seen. Active bleeding was not seen in the bulb. The scope was advanced into the second portion of duodenum. There was a moderate amount of red blood. We extensively irrigated and suctioned. There was a fairly fresh clot that was aspirated away. We spent a long time in the second portion of duodenum down to the level of papilla examining the mucosa. There was yellow bile coming from the papilla. Multiple insertions and withdrawal of the scope, I could not find a source of bleeding. We washed away as much blood as possible. I could not see further accumulation of blood nor could I see any mucosal lesion such as vascular ectasias or ulcers. However, finally after one of many withdrawals of the scope, we obtained a glimpse of an ulcer crater that was in a blind area just beyond the bulb. This area was very difficult to see. With withdrawal of the scope back and get a quick glimpse and the scope would slide back into the stomach. This maneuver was done on a number of occasions. We could finally see that there was a moderately deep ulcer crater. There was a white flat reddish area in the center of the ulcer crater. Active spurting or bleeding was not seen. We also used an ERCP scope and attempted to get a different angular view of the ulcer crater. This provided no additional help. The ERCP scope was withdrawn and we reinserted the upper endoscope. Difficulty was maintaining good position with the tip of the scope just at the edge of the ulcer crater in a blind area. We were not able to consistently hold the scope in that spot. We then used a sclerotherapy needle with epinephrine and made 4 injections of epinephrine around the ulcer crater. We were unable to get an angle to directly inject the ulcer crater itself. There was good blanching of the surrounding mucosa. The area was inspected and there was no evidence of ongoing bleeding. Scope was withdrawn. The patient tolerated the procedure well. DISPOSITION: The patient with bleeding duodenal ulcer. Location is extremely difficult with regards to endoscopic management. The area was injected with epinephrine. I would place her on a PPI drip. If she has evidence of further bleeding, coiling with Interventional Radiology may be an option. In addition, assuming she does well, I would suggest repeat endoscopy in 8 weeks to ensure healing of this ulcer in view of her history of recurrent GI bleeding ulcers. In addition, biopsies were again obtained of the gastric mucosa to make sure she does not have H. pylori. Also, long-term maintenance therapy with a PPI would be reasonable given her history of recurrent GI bleeding. <ELECTRONICALLY SIGNED> By: Manohar Monk MD 12/28/18 0814 [id number] Manohar Monk MD /kieran
[2018-12-28 12:43] LABS: HEMATOCRIT 23.2 % (37.0-47.0); HEMOGLOBIN 7.9 gm/dL (12.0-15.0)
--- NOTE | 2018-12-28 15:59 | NUR ---
met with patient, family at bedside. 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 She drives and has laundry in basement and reports no difficulty. She reports the care at hospital has been wonderful. She anticipates no needs at dc. Plan home independently. [facility] following for dc planning.
--- NOTE | 2018-12-28 16:07 | NUR ---
0900 DR GOLD AT BEDSIDE, PT ALERT AND ORIENTED. VERY PLEASANT MOOD. VITAL SIGNS STABLE. VERBAL ORDERS TO CHANGE HEMOGLOBIN LABS TO Q6H. VITAL SIGNS STABLE. ASSISTED PT UP TO CHAIR, TOLERATED WELL, NO DIZZINESS, VITAL SIGNS STABLE. 1600 PT REMAINS IN CHAIR, SMALL SMEAR OF TARRY STOOL TODAY, REPORTED TO GI. PT TOLERATED CLEAR LIQUIDS TODAY. VITAL SIGNS REMAINED STABLE. WILL CONTINUE TO MONITOR.
[2018-12-28 18:09] LABS: HEMATOCRIT 22.9 % (37.0-47.0); HEMOGLOBIN 7.7 gm/dL (12.0-15.0)
[2018-12-29] VITALS (27 sets, daily range): BP systolic 87–141; BP diastolic 33–58
[2018-12-29 00:29] LABS: HEMATOCRIT 24.6 % (37.0-47.0); HEMOGLOBIN 8.3 gm/dL (12.0-15.0)
[2018-12-29 06:01] LABS: HEMATOCRIT 21.5 % (37.0-47.0); HEMOGLOBIN 7.3 gm/dL (12.0-15.0)
--- NOTE | 2018-12-29 06:25 | NUR ---
ASSUMED CARE OF PT AT 1900. PT ALERT AND ORIENTED X4. PT ABLE TO GET UP STAND BY ASSIST. SR ON THE MONITOR WITH EPISODES OF SB EARLY THIS MORNING. THIS AM PT HAD X1 EPISODE OF DARK TARRY STOOL. PT STATED AT THAT TIME THAT SHE WAS FEELING DIZZY. PT ASSISTED TO CHAIR FROM [facility]SC. VSS. WILL CONTINUE TO MONITOR.
[2018-12-29 10:56] LABS: % SATURATION 20 % (20-39); IRON 48 ug/dL (50-170); TIBC 244 ug/dL (250-450)
--- NOTE | 2018-12-29 16:37 | NUR ---
SW reviewed chart and spoke with attending physician. Pt is progressing towards goals for discharge. Anticipate pt will discharge home over the weekend pending hemoglobin. No discharge needs identified at this time. SW is available to assist should needs arise.
--- NOTE | 2018-12-29 18:04 | NUR ---
ASSUMED CARE @ 0700 12/29/18, PT ASSESSMENTS AND VSS COMPLETE PER ICU PROTOCOL. PT ALERT AND ORIENTED X 4, PT ABLE TO FOLLOW ALL COMMANDS. PT IN SR, AND SB IN WHEN ASLEEP. PT ON RA, SATS IN THE HIGH 90'S, NO SIGNS OF SOA. PT ON A FULL LIQUID DIET, NO BM'S TODAY. PT UP TO THE BEDSIDE COMMODE WITH OUT COMPLICATIONS. FALL PRECAUTIONS IN PLACE. PLAN OF CARE- WILL CONTINUE TO MONITOR.
[2018-12-29 18:07] LABS: HEMATOCRIT 22.6 % (37.0-47.0); HEMOGLOBIN 7.7 gm/dL (12.0-15.0)
[2018-12-30 00:21] LABS: HEMATOCRIT 21.7 % (37.0-47.0); HEMOGLOBIN 7.4 gm/dL (12.0-15.0)
--- NOTE | 2018-12-30 01:49 | NUR ---
Pt downgraded status to MST and DCed protonix drip to protonix BID IVP per [facility] Ambroc[facility]. pt's H/H has been stable for last two days and GI signed off for pt to be discharged.
[2018-12-30 04:00] VITALS: BP 105/52
--- NOTE | 2018-12-30 04:53 | NUR ---
REPORT TO DUNCAN MOYER. ORDERS TO TRANSFER PT TO CCU ROOM 219
[2018-12-30 05:20] VITALS: BP 130/54
--- NOTE | 2018-12-30 06:10 | NUR ---
Received report from Jerome CLOTH FINISHER.Patient arrived to room 219 around 5 am.Pt A/O X 4.Denies pain and SOB.Vital signs stable.No bleeding noted.Denies dizziness.Instructed to call for help.Pt is hoping to go home today.will monitor and continue POC.
[2018-12-30 07:01] LABS: HEMATOCRIT 23.1 % (37.0-47.0); HEMOGLOBIN 7.9 gm/dL (12.0-15.0)
[2018-12-30 08:10] VITALS: BP 124/54
[2018-12-30] MEDS ORDERED: PROTONIX40 M1 PO (08:12)
[2018-12-30 10:41] VITALS: BP 124/54
--- NOTE | 2018-12-30 12:25 | NUR ---
ASSUMED CARE FOR PT AT SHIFT CHANGE. PT A&OX4. VSS. VERY TALKATIVE AND PLEASANT. ASSESSMENT CHARTED. MEDS ADMINISTERED PER JUL. DISCHARGE ORDERS COMPLETED. RX EXPLAINED AND GIVEN. IV AND TELE D/C. TOOK PT TO FRONT DOOR IN WHEELCHAIR WITH DAUGHTER AND GRANDDAUGHTER.
== END 2018-12-30 11:48 | disposition home or self-care (01) | DRG 377 ==
LOC: ER 22:25 → 2N 12-26 00:50 → EROBS 12-26 00:50 → ICU 12-26 00:50 → EROBS 12-26 06:44 → 2N 12-26 10:38 → ICU 12-27 06:17 → 2N 12-30 05:08
PROVIDERS: Emergency Medicine; Internal Medicine; Internal Medicine Gastroenterology; Nurse Practitioner Acute Care; Specialist; ADMIT Internal Medicine
DX: K26.4 Chronic or unspecified duodenal ulcer with hemorrhage (principal); R57.8 Other shock; D62 Acute posthemorrhagic anemia; K29.71 Gastritis, unspecified, with bleeding; E78.5 Hyperlipidemia, unspecified; K21.9 Gastro-esophageal reflux disease without esophagitis; E11.9 Type 2 diabetes mellitus without complications; J11.1 Influenza due to unidentified influenza virus with other respiratory manifestations; I10 Essential (primary) hypertension; Z86.010 Personal history of colon polyps; Z98.49 Cataract extraction status, unspecified eye; Z87.891 Personal history of nicotine dependence; Z87.11 Personal history of peptic ulcer disease
CPT/HCPCS: 10078; 10081; 62110; 62900; 70005; 85076